=== PATIENT | female | born 1960 | race Caucasian/White ===

== ENCOUNTER 2017-12-25 08:00 | Outpatient (CLI) | payer BC | END 2017-12-25 09:00 | disposition home or self-care (01) | LOC: D.MAMMO 08:00 | DX: Z12.31 Encounter for screening mammogram for malignant neoplasm of breast (principal) ==

== ENCOUNTER → 2018-02-04 20:20 | Outpatient (CLI) | payer BC | END | disposition home or self-care (01) | LOC: D.MAMMO 09:30 | DX: R92.8 Other abnormal and inconclusive findings on diagnostic imaging of breast (principal) ==

== ENCOUNTER → 2018-08-15 06:57 | Outpatient (CLI) | payer BC | END | disposition home or self-care (01) | LOC: D.RAD 06:57 | DX: M54.5 Low back pain (principal) ==

== ENCOUNTER 2019-06-01 14:00 | Outpatient (CLI) | payer BC | END 2019-06-01 14:30 | disposition home or self-care (01) | LOC: D.MAMMO 14:00 | PROVIDERS: ATTEND Family Medicine | DX: Z12.31 Encounter for screening mammogram for malignant neoplasm of breast (principal) ==